=== PATIENT | female | born 1965 | race Caucasian/White ===

== ENCOUNTER 2016-12-09 23:48 | Emergency (ER) | payer MEDICAID ==
[~2016-12-09] VITALS: Ht 160 cm; Wt 74.0 kg
[~2016-12-09 23:48] MED LIST: MECL25TA2 PO; METF500T3 PO; ONDA-43 PO
[2016-12-09 23:52] VITALS: Ht 160 cm; Wt 74.0 kg
--- NOTE | 2016-12-10 03:33 | ERD ---
ER Documentation Chief Complaint Date/Time DATE: 12/10/16 TIME: 03:28 Chief Complaint LEFT FOOT PAIN STARTING TODAY HPI 51-year-old female presents here in emergency department for complaint of left foot pain left ankle pain started today after twisting it. Patient described the pain as sharp pain, 6/10 scale, is worse upon movement accompanied with swelling. Patient took some Tylenol for pain with mild relief. Patient denies any deformity. Patient denies any numbness or tingling. ROS All systems reviewed and are negative except as per history of present illness. Medications Home Meds Active Scripts Metformin Hcl* (Metformin Hcl* ER) 500 Mg Tab.sr.24h, 500 MG PO DAILY, #30 TAB Prov:LOUISADANILO 07/30/16 Ondansetron Hcl* (Zofran*) 4 Mg Tab, 4 MG PO Q4H Y for NAUSEA AND OR VOMITING, # 20 TAB Prov:LOUISADANILO 07/30/16 Meclizine Hcl* (Antivert*) 25 Mg Tablet, 25 MG PO Q6H Y for DIZZINESS, #20 TAB Prov:LOUISADANILO 07/30/16 Allergies Allergies: Coded Allergies: No Known Drug Allergies (Verified Allergy, Mild, 07/28/14) PMhx/Soc Medical and Surgical Hx: pt denies Surgical Hx History of Surgery: No Anesthesia Reaction: No Hx Neurological Disorder: No Hx Respiratory Disorders: No Hx Cardiac Disorders: No Hx Psychiatric Problems: No Hx Miscellaneous Medical Probl: Yes Hx Alcohol Use: No Hx Substance Use: No Hx Tobacco Use: No Smoking Status: Never smoker FmHx Family History: No coronary disease, No diabetes, No other Physical Exam Vitals Vital Signs Date Time Temp Pulse Resp B/P Pulse Ox O2 Delivery O2 Flow Rate FiO2 12/09/16 23:52 98.0 75 16 171/79 100 Physical Exam GENERAL: The patient is well developed and appropriate for usual state of health, in no apparent distress. CHEST: Clear to auscultation bilaterally. There are no rales, wheezes or rhonchi. HEART: Regular rate and rhythm. No murmurs, clicks, rubs or gallops. No S3 or S4. ABDOMEN: Soft, nontender and nondistended. Good bowel sounds. No rebound or guarding. No gross peritonitis. No gross organomegaly or masses. No Hale sign or McBurney point tenderness. BACK: No midline or flank tenderness. EXTREMITIES: Mild tenderness on palpation on the lateral malleolus of the left foot, mid mild swelling noted, some tenderness on palpation on the left fifth metatarsal. Equal pulses bilaterally. Able to do full range of motion of the left ankle without any restriction. Full range of motion of other joints of the body. Grossly neurovascularly intact. NEURO: Alert and oriented. Cranial nerves 2-12 intact. Motor strength in all 4 extremities with 5/5 strength. Sensation grossly intact. Normal speech and gait. SKIN: There is no apparent rash or petechia. The skin is warm and dry. HEMATOLOGIC AND LYMPHATIC: There is no evidence of excessive bruising or lymphedema. No gross cervical, axillary, or inguinal lymphadenopathy. Results 24 hrs PROCEDURE: XR left ankle CLINICAL INDICATION: left foot and ankle pain after twisting it TECHNIQUE: 3 views of the left ankle were performed. COMPARISON: None. FINDINGS: No fracture or dislocation is seen. Pain is indicated as being lateral and there is lateral soft tissue swelling. A joint effusion is present and a heel spur is seen. The ankle mortise appears intact. IMPRESSION: Lateral ankle soft tissue edema and joint effusion. No definite fracture. Follow-up CT or MRI could be obtained if pain persists. RPTAT: HLBE Farideh Rodriguez, Physician Date Time Electronically viewed and signed by Farideh Rodriguez Physician on 12/10/2016 04 :05 LE/ PROCEDURE: XR Foot. CLINICAL INDICATION: left foot and ankle pain after twisting it TECHNIQUE: 3 views of the left foot were obtained. COMPARISON: None. FINDINGS: No fracture or dislocation is seen. No foreign body is seen. No marked soft tissue swelling. No significant degenerative change. Heel spur is seen. IMPRESSION: No definite acute fracture or dislocation. Heel spur. RPTAT: HLBE Farideh Michael, Physician Date Time Electronically viewed and signed by Farideh Rodriguez Physician on 12/10/2016 03 :55 LE/ CC: JESSICA CHAPMAN NP After receiving patients xray report, an Willis wrap was applied on the patients left ankle. After application of the Willis wrap, patient has intact sensation and circulation on distal area of the affected joint. Patient does not complain of numbness or tingling after application of the Willis wrap. Patient tolerated procedure well. Procedures/MDM Medical Decision Making: Patient's pain is most likely consistent with a contusion or a sprain. There is no suspicion for neurovascular compromise. Patient has intact sensation and circulation of the affected extremity. There is low suspicion for septic arthritis. Patient does not have any fever. Radiology exams of the affected area does not show any fracture or dislocation. Disposition: Home. Patient is given prescription for ibuprofen for pain much, tramadol for severe pain. Patient was advised to elevate the affected area and apply ice on affected area. Patient was advised that if symptoms are worse, numbness, tingling, high fever, unable to move joint, worsening symptoms, to return to emergency department immediately. Otherwise, patient is advised to follow up with the primary care doctor in 5-7 days for reevaluation of symptoms. Departure Diagnosis: Primary Impression: Ankle sprain Encounter type: initial encounter Involved ligament of ankle: calcaneofibular ligament Laterality: left Qualified Code: S93.412A - Sprain of calcaneofibular ligament of left ankle, initial encounter Additional Impression: Foot pain Laterality: left Qualified Code: M79.672 - Left foot pain Condition: Stable Patient Instructions: Contusion, Foot, Sprain, Ankle, With X-Ray Additional Instructions: Patient is given prescription for ibuprofen for pain much, tramadol for severe pain. Patient was advised to elevate the affected area and apply ice on affected area. Patient was advised that if symptoms are worse, numbness, tingling, high fever, unable to move joint, worsening symptoms, to return to emergency department immediately. Otherwise, patient is advised to follow up with the primary care doctor in 5-7 days for reevaluation of symptoms. JESSICA CHAPMAN NP Dec 10, 2016 03:33
--- NOTE | 2016-12-10 03:55 | RADRPT ---
PROCEDURE: XR Foot. CLINICAL INDICATION: left foot and ankle pain after twisting it TECHNIQUE: 3 views of the left foot were obtained. COMPARISON: None. FINDINGS: No fracture or dislocation is seen. No foreign body is seen. No marked soft tissue swelling. No s ignificant degenerative change. Heel spur is seen. IMPRESSION: No definite acute fracture or dislocation. Heel spur. RPTAT: HLBE Farideh Rodriguez Physician Date Time Electronically viewed and signed by Farideh Rodriguez, Physician on 12/10/2016 03:55 LE/
--- NOTE | 2016-12-10 04:05 | RADRPT ---
PROCEDURE: XR left ankle CLINICAL INDICATION: left foot and ankle pain after twisting it TECHNIQUE: 3 views of the left ankle were performed. COMPARISON: None. FINDINGS: No fracture or dislocation is seen. Pain is indicated as being lateral and there is lateral soft ti ssue swelling. A joint effusion is present and a heel spur is seen. The ankle mortise appears inta ct. IMPRESSION: Lateral ankle soft tissue edema and joint effusion. No definite fracture. Follow-up CT or MRI coul d be obtained if pain persists. RPTAT: HLBE Physician Peterson Date Time Electronically viewed and signed by Farideh Rodriguez Physician on 12/10/2016 04:05 LE/
[2016-12-10] MEDS ORDERED: ULT50 PO (04:24)
[2016-12-10] MEDS ORDERED: IBUP-1542 PO (04:24)
[2016-12-10 04:37] VITALS: BP 129/79; PULSE 71; RESP 20; TEMP 98.1
== END 2016-12-10 04:47 | disposition home or self-care (01) ==
LOC: FTE 23:48
DX: S93.412A Sprain of calcaneofibular ligament of left ankle, initial encounter (principal); E11.9 Type 2 diabetes mellitus without complications; X50.1XXA Overexertion from prolonged static or awkward postures, initial encounter; Y92.9 Unspecified place or not applicable; Z79.84 Long term (current) use of oral hypoglycemic drugs
CPT/HCPCS: 73610; 73630; Z7502

== ENCOUNTER 2017-08-09 20:30 | Emergency (ER) | payer MEDICAID ==
[~2017-08-09] VITALS: Wt 73.0 kg
[~2017-08-09 20:30] MED LIST changes: +IBUP-1542 PO; +TRAM50TA2 PO
[2017-08-09] MEDS ORDERED: LIDOCAINE 1% (MDV) 20 ML INJ SC ONE (22:00)
[2017-08-09] MEDS ORDERED: ERYT1OIN6 BOTH EYES (22:31)
[2017-08-09] MEDS ORDERED: CEPH-443 PO (22:31)
[2017-08-09 22:38] VITALS: BP 158/81; PULSE 61; RESP 18; TEMP 98.5
--- NOTE | 2017-08-10 02:13 | ERD ---
ER Documentation Chief Complaint Date/Time DATE: 08/10/17 TIME: 02:09 Chief Complaint Right index finger abscess abd swollen Right eyelid with itchiness HPI 52-year-old female coming in complaining of swelling to the right index finger 1 day and swelling to her right eyelid 1 day. Patient denies any visual deficits. Patient is right-hand dominant. Patient has had pus extracted from the wound of her right index finger. Patient denies any pain with movement of her right index finger. Denies fevers. Patient denies use of contact lenses or glasses. ROS All systems reviewed and are negative except as per history of present illness. Medications Home Meds Active Scripts Cephalexin* (Keflex*) 500 Mg Capsule, 500 MG PO QID for 5 Days, CAP Prov:JOYA PEREZ PA-C 08/09/17 Erythromycin (Erythromycin Opth) 3.5 Gm Oint..gm., 1 APPLIC BOTH EYES QID, #1 Prov:JOYA PEREZ PA-C 08/09/17 Tramadol HCl (Tramadol HCl) 50 Mg Tablet, 50 MG PO Q6 Y for PAIN, #20 TAB Prov:JESSICA CHAPMAN NP 12/10/16 Ibuprofen* (Motrin*) 600 Mg Tab, 600 MG PO Q6H Y for PAIN AND OR ELEVATED TEMP, #30 TAB Prov:JESSICA CHAPMAN FAMILY NURSE 12/10/16 Metformin Hcl* (Metformin Hcl* ER) 500 Mg Tab.sr.24h, 500 MG PO DAILY, #30 TAB Prov:DANILO JASSO 07/30/16 Ondansetron Hcl* (Zofran*) 4 Mg Tab, 4 MG PO Q4H Y for NAUSEA AND OR VOMITING, # 20 TAB Prov:DANILO JASSO 07/30/16 Meclizine Hcl* (Antivert*) 25 Mg Tablet, 25 MG PO Q6H Y for DIZZINESS, #20 TAB Prov:DANILO JASSO 07/30/16 Allergies Allergies: Coded Allergies: No Known Drug Allergies (Verified Allergy, Mild, 07/28/14) PMhx/Soc Medical and Surgical Hx: pt denies Surgical Hx History of Surgery: No Anesthesia Reaction: No Hx Neurological Disorder: No Hx Respiratory Disorders: No Hx Cardiac Disorders: No Hx Psychiatric Problems: No Hx Miscellaneous Medical Probl: Yes (dm2) Hx Alcohol Use: No Hx Substance Use: No Hx Tobacco Use: No Smoking Status: Never smoker Physical Exam Vitals Vital Signs Date Time Temp Pulse Resp B/P Pulse Ox O2 Delivery O2 Flow Rate FiO2 08/09/17 22:38 98.5 61 18 158/81 99 Room Air 08/09/17 20:36 97.9 70 20 144/72 98 Physical Exam GENERAL: The patient is well-appearing, well-nourished, in no acute distress HEENT: Pupils equal round and reactive to light. Extraocular movements intact. No surrounding erythema to the ocular tissue. Punctate erythematous site on the right upper eyelid. CHEST: Clear to auscultation bilaterally. There are no rales, wheezes or rhonchi. HEART: Regular rate and rhythm. No murmurs, clicks, rubs or gallops. No S3 or S4. EXTREMITIES: Patient able to isolate at the DIP and PIP joint of the right index finger without difficulty. No pain with finger movement. No forced flexion. Cap refill less than 2 seconds. Patient neurovascularly intact to the right distal index tip. SKIN: Erythema and fluctuance noted to the right distal index finger adjacent to the nail bed. No streaking. No such as finger. Results 24 hrs Current Medications Medications (Trade) Dose Ordered Sig/Eliseo Route PRN Reason Start Time Stop Time Status Last Admin Dose Admin Lidocaine (Xylocaine 1% (Mdv) 20 ml) 20 ml ONCE ONCE SC 08/09/17 22:00 08/09/17 22:01 DC Procedures/MDM ER course: Fingertip clean with normal saline and alcohol. 2 cc of plain lidocaine injected and volar digital block fashion of the right index finger. Finger adequately numbed. Using 11 blade a small incision was made and copious discharge was extracted. Site was recleaned and bacitracin ointment with bandages applied. MDM: I have low suspicion for flexor tenosynovitis. I have low suspicion for periorbital or orbital cellulitis. Patient does not have pain with ocular movements. Patient does not have forced flexion noted of the fingertip. Patient's exam is indicative of stye and paronychia.Patient will be discharged with antibiotics and instructions to use warm compresses on the wound sites. Patient is told symptoms change or worsen to return to the ER. All questions answered time of discharge. Departure Diagnosis: Primary Impression: Sty Additional Impression: Acute paronychia Condition: Stable Patient Instructions: Jennifer Sty Referrals: [facility] YOU HAVE RECEIVED A MEDICAL SCREENING EXAM AND THE RESULTS INDICATE THAT YOU DO NOT HAVE A CONDITION THAT REQUIRES URGENT TREATMENT IN THE EMERGENCY DEPARTMENT. FURTHER EVALUATION AND TREATMENT OF YOUR CONDITION CAN WAIT UNTIL YOU ARE SEEN IN YOUR DOCTORS OFFICE WITHIN THE NEXT 1-2 DAYS. IT IS YOUR RESPONSIBILITY TO MAKE AN APPOINTMENT FOR FOLOW-UP CARE. IF YOU HAVE A PRIMARY DOCTOR --you should call your primary doctor and schedule an appointment IF YOU DO NOT HAVE A PRIMARY DOCTOR YOU CAN CALL OUR PHYSICIAN REFERRAL HOTLINE AT IF YOU CAN NOT AFFORD TO SEE A PHYSICIAN YOU CAN CHOSE FROM THE FOLLOWING [facility] [address] [facility] [address] [employer] [address] [facility] [facility] [address] [facility] [address] [facility] [address] [facility]. [facility] [address] Additional Instructions: FOLLOW UP WITH YOUR PRIMARY CARE PHYSICIAN TOMORROW.Return to this facility if you are not improving as expected. JOYA PEREZ PA-C Aug 10, 2017 02:13
== END 2017-08-09 22:38 | disposition home or self-care (01) ==
LOC: FTE 20:30
DX: H00.011 Hordeolum externum right upper eyelid (principal); E11.9 Type 2 diabetes mellitus without complications; L03.011 Cellulitis of right finger; Z79.84 Long term (current) use of oral hypoglycemic drugs
CPT/HCPCS: 26010; Z7502; Z7610

== ENCOUNTER 2019-07-02 21:28 | Emergency (ER) | payer MEDICAID ==
[~2019-07-02] VITALS: Ht 160 cm; Wt 77.0 kg
[~2019-07-02 21:28] MED LIST changes: +CEPH-443 PO; +ERYT1OIN6 BOTH EYES; -ONDA-43 PO; +ONDA4TAB13 PO
[2019-07-02 21:35] VITALS: Ht 160 cm; Wt 77.0 kg
[2019-07-02] MEDS ORDERED: KETOROLAC 30 MG INJ IM STA (22:10)
[2019-07-02 23:25] VITALS: BP 134/78; PULSE 81; RESP 16
--- NOTE | 2019-07-03 00:57 | ERD ---
ER Documentation Chief Complaint Chief Complaint LEFT ANKLE PAIN AFTER A FALL. NO KO HPI 54-year-old female coming in with left ankle pain and left leg pain secondary to a trip and fall at work. Patient did not lose consciousness. Patient did not hit her head. Patient is alert oriented x4. Patient remembers the entire events patient states that her only past medical history is diabetes. The patient states she is not currently taking any medication and the patient states she has no allergies to medications. The patient states the pain is a 6 out of 10 and is worse when she has to walk. The patient states she feels better in the wheelchair. ROS All systems reviewed and are negative except as per history of present illness. Medications Home Meds Active Scripts Ibuprofen* (Motrin*) 600 Mg Tab, 600 MG PO Q6, #30 TAB Prov:PRASANTH RATLIFF PA-C 07/02/19 Cephalexin* (Keflex*) 500 Mg Capsule, 500 MG PO QID for 5 Days, CAP Prov:JOYA PEREZ PA-C 08/09/17 Erythromycin (Erythromycin Opth) 3.5 Gm Oint..gm., 1 APPLIC BOTH EYES QID, #1 Prov:JOYA PEREZ PA-C 08/09/17 Tramadol HCl (Tramadol HCl) 50 Mg Tablet, 50 MG PO Q6 PRN for PAIN, #20 TAB Prov:JESSICA CHAPMAN HASHER OPERATOR 12/10/16 Ibuprofen* (Motrin*) 600 Mg Tab, 600 MG PO Q6H PRN for PAIN AND OR ELEVATED TEMP, #30 TAB Prov:JESSICA CHAPMAN HASHER OPERATOR 12/10/16 Metformin Hcl* (Metformin Hcl* ER) 500 Mg Tab.sr.24h, 500 MG PO DAILY, #30 TAB Prov:DANILO JASSO 07/30/16 Ondansetron Hcl* (Zofran*) 4 Mg Tab, 4 MG PO Q4H PRN for NAUSEA AND OR VOMITING, #20 TAB Prov:DANILO JASSO 07/30/16 Meclizine Hcl* (Antivert*) 25 Mg Tablet, 25 MG PO Q6H PRN for DIZZINESS, #20 TAB Prov:DANILO JASSO 07/30/16 Allergies Allergies: Coded Allergies: No Known Drug Allergies (Verified Allergy, Mild, 07/28/14) PMhx/Soc Medical and Surgical Hx: pt denies Surgical Hx History of Surgery: No Anesthesia Reaction: No Hx Neurological Disorder: No Hx Respiratory Disorders: No Hx Cardiac Disorders: No Hx Psychiatric Problems: No Hx Miscellaneous Medical Probl: Yes (dm2) Hx Alcohol Use: No Hx Substance Use: No Hx Tobacco Use: No Smoking Status: Never smoker FmHx Family History: No diabetes, No coronary disease, No other Physical Exam Vitals Vital Signs Date Temp Pulse Resp B/P (MAP) Pulse Ox O2 O2 Flow FiO2 Time Delivery Rate 07/02/19 98.7 81 16 134/78 98 Room Air 23:25 (96) 07/02/19 99.3 85 18 143/72 98 21:35 (95) Physical Exam GENERAL: Moderate Distress CHEST: Clear to auscultation bilaterally. There are no rales, wheezes or rhonchi. HEART: Regular rate and rhythm. No murmurs, clicks, rubs or gallops. EXTREMITIES: mild swelling and deformity to left lower extremity. ROM limited in the extremity the patient can ambulate but states she has pain when she ambulates and feels more comfortable in the wheelchair. The patient has good pulse motor sensation in the lower extremity. The patient is able to wiggle her toes without difficulty no signs of open fractures or exposure of soft tissue. No skin pallor noted. Patient has intact gross motor function and distal pulses are present and equal bilaterally. NEUROLOGIC: Motor strength is 5 out of 5 strength in left lower extremity sensation grossly intact. Results 24 hrs Current Medications Medications Dose Sig/Eliseo Start Time Status Last (Trade) Ordered Route PRN Stop Time Admin Dose Reason Admin Ketorolac 30 mg ONCE STAT 07/02/19 DC 07/02/19 Tromethamine IM 22:10 07/02/19 22:38 (Toradol) 22:13 Procedures/MDM ED course: The patient was stable throughout the ED course. The patient and/or family informed of laboratory and diagnostic imaging results throughout the ED course. Diagnostic imaging: Read by radiologist PROCEDURE: XR ankle CLINICAL INDICATION: Pain after fall TECHNIQUE: AP, oblique and lateral views of the left ankle COMPARISON: CR ANKLE 12/10/2016 FINDINGS: No displaced fracture identified. Contour irregularity of the lateral malleolus similar to prior. Mild hypertrophic change of the medial malleolus. Mild soft tissue fullness in the lateral ankle. Likely tibiotalar joint effusion. Hypertrophic change with mild lucency in the medial talar dome. Moderate plantar calcaneal spur. IMPRESSION: 1. Mild soft tissue swelling in the lateral ankle. Possible tibiotalar joint effusion. 2. No acute fracture identified. 3. Focal lucency in the medial talar dome likely osteochondral lesion. 4. Moderate plantar calcaneal spur. PROCEDURE: XR foot CLINICAL INDICATION: Pain after fall TECHNIQUE: AP, oblique and lateral views of the left foot COMPARISON: Insert prior FINDINGS: Mineralization is intact. No displaced fracture identified. Moderate plantar calcaneal spur. Mild degenerative change in the tibiotalar joint. Soft tissue swelling in the lateral ankle. Possible tibiotalar joint effusion. Bipartite medial hallux sesamoid. Mild hypertrophic change at the first MTP. IMPRESSION: 1. No displaced fracture identified. 2. Moderate plantar calcaneal spur. 3. Additional degenerative changes as above. PROCEDURE: Left knee x-ray CLINICAL INDICATION: Fall with pain to left leg TECHNIQUE: AP, lateral and tunnel views of the left knee were obtained. COMPARISON: None FINDINGS: There is normal mineralization. Osseous density adjacent to the lateral femoral condyle on tunnel view. Tricompartmental marginal osteophyte formation and likely mild patellofemoral compartment cartilage space narrowing. Osseous fragment adjacent to the superior patella on lateral view. No significant soft tissue swelling. No significant joint effusion. IMPRESSION: 1. No significant joint effusion. 2. Osseous density adjacent to the patella may be an osteophyte or from prior injury, and osseous density adjacent to the lateral femoral condyle on one-view may be an osteophyte or from injury of indeterminate age. Correlate for site of pain. 3. Degenerative changes most prominent in the patellofemoral compartment. 4. CT may be obtained if clinically indicated. PROCEDURE: XR tibia and fibula CLINICAL INDICATION: Pain status post fall TECHNIQUE: AP and lateral views of the left tibia and fibula COMPARISON: None FINDINGS: Mineralization is intact. No acute fracture identified within the tibia and fibula. Degenerative changes of the knee better seen on knee radiographs of the same date. IMPRESSION: No acute fracture identified within the tibia and fibula Procedures: SPLINT APPLICATION: The patient was verbally consented at bedside prior to splint application. Patient was explained the risks, benefits and alternatives to this procedure. The patient was neurovascularly intact prior to and status post application of the splint. The patient tolerated the procedure well with no complications. Splint type: Ortho boot Extremity: Left lower extremity Indication: Pain with ambulation I discussed with the patient/family that at anytime if the splint becomes too constricted or if they have loss of sensation, or unable to move any limbs distal to the splint, develop fever, or any discomfort that they should eturn to the ER immdiatly. I educated the patient on risk of compartment syndrome with splint applications. Medications given in ER: Toradol Patient tolerated medication well with no adverse reactions. Patient reported improvement in pain. Medical decision makin-year-old female presented to ED for left lower extremity pain secondary to fall. Patient's physical exam was unremarkable except for pain and tenderness to palpation. Patient had good distal pulses and motor function in the left lower extremity. The patient was given Toradol injection for pain and radiology report came back with no signs of fractures or dislocations. This does not rule out a ligament injury the patient does have pain with ambulation. The patient was placed in a Ortho boot and given crutches. A neurovascular examination was done prior splint placement which showed no deficits. Reexamination was done after the diet tech placed the splint and showed the patient how to use the crutches. There was no neuro deficits noted on examination. The patient is afebrile and reports improvement in pain. At this time I have low suspicion for dislocation, fracture, osteomyelitis, neurovascular injury. Advised the patient that she needs to follow-up with her primary care provider in 1 to 2 days regarding this visit. I advised the patient symptoms worsen she needs return to ER immediately. All questions were answered upon discharge and patient is in agreement to treatment plan Prescription for home: Motrin I have discussed with the patient proper use and common side effects to expert with the medication . I advised the patient/family to speak with the pharmacist dispensing the medication to be advised of any potential drug interactions with other medication or supplements they may be taking. Discharge: At this time, patient is stable for discharge and outpatient management. I have instructed the patient to follow-up with his\her primary care physician in 1 to 2 days. I have discussed with the patient the possibility of needing to see a specialist for further work-up and imaging studies if symptoms persist. I have instructed the patient to promptly return to the ER for any new or worsening symptoms including increased pain, fever, nausea, vomiting, weakness or LOC. The patient and\or family expressed understanding of and agreement with this plan. All questions were answered. Home care instructions were provided. Disclaimer: Inadvertent spelling and grammatical errors are likely due to EHR\dictation software use and do not reflect on the overall quality of patient care. Also, please note that the electronic time recorded on the note does not necessarily reflect the actual time of the patient encounter. Departure Diagnosis: Primary Impression: Ankle pain Chronicity: acute Laterality: left Qualified Codes: M25.572 - Pain in left ankle and joints of left foot Additional Impression: Ankle injury Encounter type: initial encounter Laterality: left Qualified Codes: S99.912A - Unspecified injury of left ankle, initial encounter Condition: Stable Patient Instructions: What Are Ankle Sprains?, Sprain, Ankle, With X-Ray Referrals: [facility] YOU HAVE RECEIVED A MEDICAL SCREENING EXAM AND THE RESULTS INDICATE THAT YOU DO NOT HAVE A CONDITION THAT REQUIRES URGENT TREATMENT IN THE EMERGENCY DEPARTMENT. FURTHER EVALUATION AND TREATMENT OF YOUR CONDITION CAN WAIT UNTIL YOU ARE SEEN IN YOUR DOCTORS OFFICE WITHIN THE NEXT 1-2 DAYS. IT IS YOUR RESPONSIBILITY TO MAKE AN APPOINTMENT FOR FOLOW-UP CARE. IF YOU HAVE A PRIMARY DOCTOR --you should call your primary doctor and schedule an appointment IF YOU DO NOT HAVE A PRIMARY DOCTOR YOU CAN CALL OUR PHYSICIAN REFERRAL HOTLINE AT IF YOU CAN NOT AFFORD TO SEE A PHYSICIAN YOU CAN CHOSE FROM THE FOLLOWING [facility] [address] [facility]. [facility] [address] [facility] [address] [facility]. [facility] [address] [facility]. [facility] [address] [facility]. [facility]. [address] [facility]. [facility] YOU HAVE RECEIVED A MEDICAL SCREENING EXAM AND THE RESULTS INDICATE THAT YOU DO NOT HAVE A CONDITION THAT REQUIRES URGENT TREATMENT IN THE EMERGENCY DEPARTMENT. FURTHER EVALUATION AND TREATMENT OF YOUR CONDITION CAN WAIT UNTIL YOU ARE SEEN IN YOUR DOCTORS OFFICE WITHIN THE NEXT 1-2 DAYS. IT IS YOUR RESPONSIBILITY TO MAKE AN APPOINTMENT FOR FOLOW-UP CARE. IF YOU HAVE A PRIMARY DOCTOR --you should call your primary doctor and schedule and appointment IF YOU DO NOT HAVE A PRIMARY DOCTOR YOU CAN CALL OUR PHYSICIAN REFERRAL HOTLINE AT . IF YOU CAN NOT AFFORD TO SEE A PHYSICIAN YOU CAN CHOSE FROM THE FOLLOWING [facility] INSTITUTIONS: [facility] [address] [place] [address] [facility] [address] [place] [address] [facility] [address] [place] [address] [facility] Urgent Care 7 a.m.- 11 p.m. Every Day of the Week NO APPOINTMENT OR AUTHORIZATION NEEDED Additional Instructions: Call your primary care doctor TOMORROW for an appointment during the next 1-2 days.See the doctor sooner or return here if your condition worsens before your appointment time. PRASANTH RATLIFF PA-C Jul 03, 2019 00:56
== END 2019-07-02 23:25 | disposition home or self-care (01) ==
LOC: FTE 21:28
DX: S99.912A Unspecified injury of left ankle, initial encounter (principal); E11.9 Type 2 diabetes mellitus without complications; W01.0XXA Fall on same level from slipping, tripping and stumbling without subsequent striking against object, initial encounter; Y92.89 Other specified places as the place of occurrence of the external cause; Z79.84 Long term (current) use of oral hypoglycemic drugs
CPT/HCPCS: 73562; 73590; 73610; 73630; 96372; J1885; Z7502